=== PATIENT | female | born 1945 | race Caucasian/White ===

== ENCOUNTER 2017-09-02 11:36 | Emergency (ER) | payer MEDICARE ==
[~2017-09-02] VITALS: Ht 149.9 cm; Wt 43.1 kg
[2017-09-02 11:38] VITALS: BP 170/80
== END 2017-09-02 12:26 | disposition home or self-care (01) ==
LOC: ER 11:37
DX: S09.8XXA Other specified injuries of head, initial encounter (principal); R42 Dizziness and giddiness; W18.39XA Other fall on same level, initial encounter; Y93.89 Activity, other specified; Y92.89 Other specified places as the place of occurrence of the external cause; Y99.8 Other external cause status
CPT/HCPCS: 70450-TC; A4606; Z7610